=== PATIENT | female | born 1930 | race African-American/Black ===

== ENCOUNTER 2017-02-18 12:58 | Emergency (ER) | payer BC ==
[~2017-02-18 12:58] MED LIST: *UNABLE1; ACET500CAP PO; ADALAT CC90 MG PO; AMB10 PO; APRES10B PO; ASAB PO; BLOOD PRESSURE MED 1 PO; BLOOD PRESSURE MED 2 PO; BLOOD PRESSURE MED PO; BLOOD PRESSURE RX #1 PO; BLOOD PRESSURE RX #2 PO; CARDU4 PO; COMBIVENT INH; DSS PO; FERGON OR; FERREX 150150 MG PO; FERROUS SULF325 M1 PO; GAS RELIEF PO; GLUCXL5 PO; HALF81 PO; IMDUR30 PO; IMDUR60 PO; KDUR20 PO; KLOR-CON M2020 MEQ PO; L20 PO; LISINOPRIL40 MG PO; MAGNESIUM CITRATE PO; MIRALAXPKT PO; MOMUD PO; NAP250 PO; NEBULIZER SOLN RX INH; NIFEDIAC CC90 MG PO; NORV5 PO; NUIRONCAP PO; OTC PAIN MED PO; OTC SLEEP AID PO; P10 PO; POTASSIUM 20 MEQ PO; POTASSIUM PO; PRILO PO; PRIN10 PO; PROAIR HFA INH; PROTONIX PO; PULMICORT180 MCG INH; SINGULAIR1 PO; STERAPDS12; STERAPRED DS10 MG; STOOL SOFTEN240 MG PO; SUCR PO; SYMBICORT 160/41 INH INH; T PO; TUMSROLL PO; VENTOLIN HFA INH; VIB100 PO; VIBRATAB100 MG PO; VITAMIN D1000 UNI1 PO; VITAMIN D31000 UNIT PO; VITAMIN D400 UNI1 PO; ZANTAC 150 PO; ZESTRIL40 MG PO; [UNRECOGNIZED DRUG - REMARK] PO; [UNRECOGNIZED DRUG - REMARK] PO; [UNRECOGNIZED DRUG - REMARK] PO
[2017-02-18 14:01] LABS: BASOPHILS 0.6 %; BASOPHILS ABSOLUTE 0.05 10/3/uL (0.0-0.16); EOSINOPHILS ABSOLUTE 0.43 10/3/uL (0.0-0.53); HEMOGLOBIN 12.7 g/dL (12.0-16.0); IMMATURE GRANULOCYTES 0.3 %; IMMATURE GRANULOCYTES ABSOLUTE 0.03 10/3/uL (0.0-0.11); LYMPHOCYTES 26.6 %; MEAN CORPUS HGB CONC 34.3 g/dL (32.0-36.0); MEAN CORPUSCULAR HEMOGLOB 29.3 pg (26.0-34.0); MONOCYTES 4.7 %; MONOCYTES ABSOLUTE 0.41 10/3/uL (0.21-1.20); NEUTROPHILS 62.8 %; NEUTROPHILS ABSOLUTE 5.44 10/3/uL (2.02-8.40); PLATELET COUNT 263 10/3/uL (150-400); RBC DISTRIBUTION WIDTH 13.9 % (12.0-16.0); RED CELL COUNT 4.34 10/6/uL (4.0-5.6); WHITE BLOOD CELLS 8.7 10/3/uL (4.5-10.5)
[2017-02-18 14:03] LABS: MANUAL DIFF NO %; MEAN CORPUSCULAR VOLUME 85.3 fL (80-100)
[2017-02-18 14:09] LABS: PROTIME (NOT ORD) 13.5 SEC (12.0-14.5)
[2017-02-18 14:10] LABS: PARTIAL THROMBO TIME 32.5 SEC (22.5-37.2)
[2017-02-18 14:16] LABS: BUN (BLOOD UREA NITROGEN) 14 MG/DL (6-23); CALCIUM, SERUM 9.5 MG/DL (8.5-10.4); CHEST PAIN PROFILE TAT 0 Hrs 19 Mins; CHLORIDE, SERUM 104 MMOL/L (96-112); CO2 (CARBON DIOXIDE) 27 MMOL/L (24-34); CREATININE 1.01 MG/DL (0.55-1.02); GFR AFRICAN AMERICAN 59 ML/MIN (>=60); GFR NON AFRICAN AMERICAN 51 ML/MIN (>=60); GLUCOSE, SERUM 133 MG/DL (60-99); POTASSIUM, SERUM 3.4 MMOL/L (3.5-5.3); SODIUM, SERUM 142 MMOL/L (135-148); TROPONIN I <0.02 NG/ML (<0.05)
[2017-02-18 14:39] LABS: BE (BASE EXCESS) 3.4 MEQ/L (0 +/- 2.5); HCO3 (ACTUAL BICARBONATE) 27.9 MEQ/L (23-27); INSTRUMENT SERIAL # 8087; PCO2 (CO2 TENSION) 42 MMHG (35-45); PO2 (O2 TENSION) 63 MMHG (79-93); pH 7.44 (7.37-7.43)
[2017-02-18 14:40] LABS: ALLENS TEST Pos; CARBOXYHEMOGLOBIN 1.3 % (0-3); METHEMOGLOBIN 0.3 % (0-3); O2 CONTENT 16.7 VOL% (18-24); SAMPLE Arterial
[2017-06-30] MEDS ORDERED: DORYX100 MG PO (13:37)
[2017-06-30] MEDS ORDERED: STERAP512 (13:37)
[2017-06-30] MEDS ORDERED: APRES25 PO (13:38)
[2017-06-30] MEDS ORDERED: HCTZ12.5 PO (13:38)
== END 2017-02-18 16:30 | disposition home or self-care (01) ==
LOC: ER 12:58
PROVIDERS: Emergency Medicine
DX: J45.901 Unspecified asthma with (acute) exacerbation (principal); J44.1 Chronic obstructive pulmonary disease with (acute) exacerbation; I10 Essential (primary) hypertension; D64.9 Anemia, unspecified; Z87.01 Personal history of pneumonia (recurrent); Z88.0 Allergy status to penicillin; Z88.6 Allergy status to analgesic agent; Z79.899 Other long term (current) drug therapy
CPT/HCPCS: 36600; 71010; 80048; 82805; 83735; 83880; 84484; 85025; 85610; 85730; 93005; 94640; 96374; 96375; 99291; A9270-GY; J1940; J2930

== ENCOUNTER 2017-03-18 18:26 | Emergency (ER) | payer BC ==
[2017-03-18 17:38] LABS: BASOPHILS 0.6 %; BASOPHILS ABSOLUTE 0.04 10/3/uL (0.0-0.16); ER CBC TAT 0 Hrs 03 Mins; HEMATOCRIT 33.9 % (36.0-48.0); HEMOGLOBIN 11.7 g/dL (12.0-16.0); IMMATURE GRANULOCYTES 0.3 %; IMMATURE GRANULOCYTES ABSOLUTE 0.02 10/3/uL (0.0-0.11); LYMPHOCYTES 26.8 %; LYMPHOCYTES ABSOLUTE 1.78 10/3/uL (0.67-4.30); MEAN CORPUS HGB CONC 34.5 g/dL (32.0-36.0); MEAN CORPUSCULAR HEMOGLOB 29.4 pg (26.0-34.0); MEAN CORPUSCULAR VOLUME 85.2 fL (80-100); MEAN PLATELET VOLUME 9.2 fL (9.2-13.0); NEUTROPHILS 57.3 %; NEUTROPHILS ABSOLUTE 3.79 10/3/uL (2.02-8.40); PLATELET COUNT 234 10/3/uL (150-400); RBC DISTRIBUTION WIDTH 13.9 % (12.0-16.0); RED CELL COUNT 3.98 10/6/uL (4.0-5.6); WHITE BLOOD CELLS 6.6 10/3/uL (4.5-10.5)
[2017-03-18 17:40] LABS: MANUAL DIFF NO %
[2017-03-18 17:54] LABS: A/G RATIO 0.8 (0.7-1.9); ALBUMIN 3.6 G/DL (3.5-5.0); ALKALINE PHOSPHATASE 92 U/L (45-117); BUN (BLOOD UREA NITROGEN) 9 MG/DL (6-23); CALCIUM, SERUM 8.8 MG/DL (8.5-10.4); CHLORIDE, SERUM 104 MMOL/L (96-112); CO2 (CARBON DIOXIDE) 29 MMOL/L (24-34); CREATININE 1.07 MG/DL (0.55-1.02); GFR AFRICAN AMERICAN 55 ML/MIN (>=60); GFR NON AFRICAN AMERICAN 48 ML/MIN (>=60); GLOBULIN 4.5 G/DL (2.5-4.1); GLUCOSE, SERUM 103 MG/DL (60-99); POTASSIUM, SERUM 3.6 MMOL/L (3.5-5.3); SGOT(AST) 26 U/L (5-40); SGPT(ALT) 38 U/L (5-65); SODIUM, SERUM 142 MMOL/L (135-148); TOTAL BILIRUBIN 0.4 MG/DL (0-1.2); TOTAL PROTEIN 8.1 G/DL (6.0-8.5)
[2017-03-18] MEDS ORDERED: ACET500CAP PO (19:28)
[2017-03-18] MEDS ORDERED: DOXAZOSIN PO (19:29)
[2017-03-18] MEDS ORDERED: FERROUS SULFATE PO (19:30)
[2017-03-18] MEDS ORDERED: LISINOPRIL PO (19:30)
[2017-03-18] MEDS ORDERED: PROTONIX PO (19:31)
[2017-03-18] MEDS ORDERED: NIFEDIPINE PO (19:31)
[2017-03-18] MEDS ORDERED: MIRALAX POWDER PO (19:31)
[2017-03-18] MEDS ORDERED: *UNABLE1 (19:32)
[2017-06-30] MEDS ORDERED: DORYX100 MG PO (13:37)
[2017-06-30] MEDS ORDERED: STERAP512 (13:37)
[2017-06-30] MEDS ORDERED: APRES25 PO (13:38)
[2017-06-30] MEDS ORDERED: HCTZ12.5 PO (13:38)
== END 2017-03-18 20:55 | disposition home or self-care (01) ==
LOC: ER 18:26
PROVIDERS: Hospitalist
DX: J45.901 Unspecified asthma with (acute) exacerbation (principal); I10 Essential (primary) hypertension; J44.9 Chronic obstructive pulmonary disease, unspecified; Z87.891 Personal history of nicotine dependence; Z88.0 Allergy status to penicillin; Z88.6 Allergy status to analgesic agent; Z79.899 Other long term (current) drug therapy
CPT/HCPCS: 71010; 80053; 85025; 93005; 94640; 94644; 96374; 99284; A9270-GY; J2930

== ENCOUNTER → 2017-04-03 | Emergency (ER) | payer BC ==
[~2017-04-03] MED LIST changes: +ADVIL PO; +ALBUTEROL0.083 % INH; +APRES25 PO; +DORYX100 MG PO; +DOXAZOSIN PO; +FERROUS SULFATE PO; +HCTZ12.5 PO; +LISINOPRIL PO; +MIRALAX POWDER PO; +NIFEDIPINE PO; +STERAP512
[2017-04-03 09:45] LABS: BASOPHILS 0.4 %; BASOPHILS ABSOLUTE 0.03 10/3/uL (0.0-0.16); EOSINOPHILS 5.7 %; EOSINOPHILS ABSOLUTE 0.45 10/3/uL (0.0-0.53); ER CBC TAT 0 Hrs 03 Mins; HEMATOCRIT 33.3 % (36.0-48.0); HEMOGLOBIN 11.3 g/dL (12.0-16.0); IMMATURE GRANULOCYTES 0.3 %; IMMATURE GRANULOCYTES ABSOLUTE 0.02 10/3/uL (0.0-0.11); LYMPHOCYTES 20.9 %; LYMPHOCYTES ABSOLUTE 1.66 10/3/uL (0.67-4.30); MANUAL DIFF NO %; MEAN CORPUS HGB CONC 33.9 g/dL (32.0-36.0); MEAN CORPUSCULAR HEMOGLOB 28.8 pg (26.0-34.0); MEAN CORPUSCULAR VOLUME 84.7 fL (80-100); MEAN PLATELET VOLUME 9.6 fL (9.2-13.0); MONOCYTES 7.2 %; MONOCYTES ABSOLUTE 0.57 10/3/uL (0.21-1.20); NEUTROPHILS 65.5 %; PLATELET COUNT 235 10/3/uL (150-400); RBC DISTRIBUTION WIDTH 13.8 % (12.0-16.0); RED CELL COUNT 3.93 10/6/uL (4.0-5.6); WHITE BLOOD CELLS 7.9 10/3/uL (4.5-10.5)
[2017-04-03 09:55] LABS: PARTIAL THROMBO TIME 32.1 SEC (22.5-37.2)
[2017-04-03 10:03] LABS: BUN (BLOOD UREA NITROGEN) 9 MG/DL (6-23); CALCIUM, SERUM 8.6 MG/DL (8.5-10.4); CHEST PAIN PROFILE TAT 0 Hrs 21 Mins; CHLORIDE, SERUM 106 MMOL/L (96-112); CO2 (CARBON DIOXIDE) 27 MMOL/L (24-34); CREATININE 1.09 MG/DL (0.55-1.02); GFR AFRICAN AMERICAN 54 ML/MIN (>=60); GFR NON AFRICAN AMERICAN 47 ML/MIN (>=60); POTASSIUM, SERUM 3.1 MMOL/L (3.5-5.3); SODIUM, SERUM 143 MMOL/L (135-148); TROPONIN I 0.04 NG/ML (<0.05)
[2017-04-03 10:05] LABS: GLUCOSE, SERUM 157 MG/DL (60-99)
[2017-04-03 10:18] LABS: ALLENS TEST Pos; BE (BASE EXCESS) 1.5 MEQ/L (0 +/- 2.5); CARBOXYHEMOGLOBIN 0.8 % (0-3); DEVICE NC; HCO3 (ACTUAL BICARBONATE) 26.1 MEQ/L (23-27); HEMOBLOGIN CONTENT 12.4 G/DL (12-16); INSTRUMENT SERIAL # 8087; METHEMOGLOBIN 0.3 % (0-3); O2 CONTENT 16.9 VOL% (18-24); OPERATOR ID 14335; PCO2 (CO2 TENSION) 41 MMHG (35-45); PO2 (O2 TENSION) 98 MMHG (79-93); SAMPLE Arterial; pH 7.42 (7.37-7.43)
== END | disposition home or self-care (01) ==
LOC: ER 09:53
PROVIDERS: Emergency Medicine
DX: J44.1 Chronic obstructive pulmonary disease with (acute) exacerbation (principal); R06.02 Shortness of breath; I10 Essential (primary) hypertension; E87.6 Hypokalemia; Z88.0 Allergy status to penicillin; Z91.09 Other allergy status, other than to drugs and biological substances; E78.5 Hyperlipidemia, unspecified
CPT/HCPCS: 36600; 71010; 80048; 82805; 83735; 84484; 85025; 85610; 85730; 93005; 94640; 99285; A9270-GY

== ENCOUNTER 2017-04-18 15:06 | Emergency (ER) | payer BC ==
[~2017-04-18 15:06] MED LIST changes: -ADVIL PO; -ALBUTEROL0.083 % INH; -APRES25 PO; -DORYX100 MG PO; -HCTZ12.5 PO; -STERAP512
[2017-04-18 16:37] LABS: BASOPHILS 0.4 %; BASOPHILS ABSOLUTE 0.03 10/3/uL (0.0-0.16); EOSINOPHILS 4.3 %; EOSINOPHILS ABSOLUTE 0.33 10/3/uL (0.0-0.53); ER CBC TAT 0 Hrs 12 Mins; HEMATOCRIT 34.6 % (36.0-48.0); HEMOGLOBIN 11.5 g/dL (12.0-16.0); IMMATURE GRANULOCYTES 0.3 %; IMMATURE GRANULOCYTES ABSOLUTE 0.02 10/3/uL (0.0-0.11); LYMPHOCYTES 16.5 %; LYMPHOCYTES ABSOLUTE 1.27 10/3/uL (0.67-4.30); MEAN CORPUS HGB CONC 33.2 g/dL (32.0-36.0); MEAN CORPUSCULAR HEMOGLOB 28.8 pg (26.0-34.0); MEAN CORPUSCULAR VOLUME 86.7 fL (80-100); MEAN PLATELET VOLUME 9.5 fL (9.2-13.0); MONOCYTES 7.1 %; MONOCYTES ABSOLUTE 0.55 10/3/uL (0.21-1.20); NEUTROPHILS 71.4 %; NEUTROPHILS ABSOLUTE 5.52 10/3/uL (2.02-8.40); PLATELET COUNT 251 10/3/uL (150-400); RBC DISTRIBUTION WIDTH 14.3 % (12.0-16.0); RED CELL COUNT 3.99 10/6/uL (4.0-5.6); WHITE BLOOD CELLS 7.7 10/3/uL (4.5-10.5)
[2017-04-18 16:40] LABS: MANUAL DIFF NO %
[2017-04-18 16:50] LABS: INTERNATIONAL NORMAL RATI 1.1 UNITS (-); PARTIAL THROMBO TIME 32.2 SEC (22.5-37.2)
[2017-04-18 16:51] LABS: CALCIUM, SERUM 9.5 MG/DL (8.5-10.4); CHEST PAIN PROFILE TAT 0 Hrs 26 Mins; CHLORIDE, SERUM 114 MMOL/L (96-112); CO2 (CARBON DIOXIDE) 27 MMOL/L (24-34); CREATININE 1.22 MG/DL (0.55-1.02); GFR AFRICAN AMERICAN 47 ML/MIN (>=60); GFR NON AFRICAN AMERICAN 41 ML/MIN (>=60); GLUCOSE, SERUM 146 MG/DL (60-99); SODIUM, SERUM 146 MMOL/L (135-148); TROPONIN I <0.02 NG/ML (<0.05)
[2017-04-18] MEDS ORDERED: LISINOPRIL40 MG PO (16:55)
[2017-04-18] MEDS ORDERED: ADALAT CC90 MG PO (16:55)
[2017-04-18] MEDS ORDERED: KDUR20 PO (16:55)
[2017-04-18] MEDS ORDERED: PRILO PO (16:55)
[2017-04-18 16:56] LABS: BUN (BLOOD UREA NITROGEN) 14 MG/DL (6-23); POTASSIUM, SERUM 3.9 MMOL/L (3.5-5.3)
[2017-04-18] MEDS ORDERED: T PO (16:56)
[2017-04-18] MEDS ORDERED: L20 PO (16:56)
[2017-04-18] MEDS ORDERED: ALBUTEROL0.083 % INH (16:56)
[2017-04-18] MEDS ORDERED: ADVIL PO (16:57)
[2017-06-30] MEDS ORDERED: DORYX100 MG PO (13:37)
[2017-06-30] MEDS ORDERED: STERAP512 (13:37)
[2017-06-30] MEDS ORDERED: HCTZ12.5 PO (13:38)
[2017-06-30] MEDS ORDERED: APRES25 PO (13:38)
== END 2017-04-18 19:06 | disposition home or self-care (01) ==
LOC: ER 15:06
PROVIDERS: Emergency Medicine
DX: J45.901 Unspecified asthma with (acute) exacerbation (principal); J20.9 Acute bronchitis, unspecified; I10 Essential (primary) hypertension; Z88.0 Allergy status to penicillin; Z88.6 Allergy status to analgesic agent; Z79.899 Other long term (current) drug therapy
CPT/HCPCS: 71020; 80048; 83735; 84484; 85025; 85610; 85730; 93005; 94640; 96374; 99285; J2920

== ENCOUNTER 2017-05-13 23:53 | Emergency (ER) | payer BC ==
[2017-05-13 20:12] LABS: BASOPHILS 0.4 %; BASOPHILS ABSOLUTE 0.03 10/3/uL (0.0-0.16); EOSINOPHILS 7.4 %; EOSINOPHILS ABSOLUTE 0.53 10/3/uL (0.0-0.53); HEMATOCRIT 33.5 % (36.0-48.0); HEMOGLOBIN 11.3 g/dL (12.0-16.0); IMMATURE GRANULOCYTES 0.1 %; IMMATURE GRANULOCYTES ABSOLUTE 0.01 10/3/uL (0.0-0.11); LYMPHOCYTES 18.1 %; LYMPHOCYTES ABSOLUTE 1.29 10/3/uL (0.67-4.30); MEAN CORPUS HGB CONC 33.7 g/dL (32.0-36.0); MEAN CORPUSCULAR HEMOGLOB 28.5 pg (26.0-34.0); MEAN CORPUSCULAR VOLUME 84.6 fL (80-100); MEAN PLATELET VOLUME 9.6 fL (9.2-13.0); MONOCYTES 3.8 %; MONOCYTES ABSOLUTE 0.27 10/3/uL (0.21-1.20); NEUTROPHILS 70.2 %; NEUTROPHILS ABSOLUTE 4.99 10/3/uL (2.02-8.40); PLATELET COUNT 226 10/3/uL (150-400); RBC DISTRIBUTION WIDTH 13.8 % (12.0-16.0); RED CELL COUNT 3.96 10/6/uL (4.0-5.6); WHITE BLOOD CELLS 7.1 10/3/uL (4.5-10.5)
[2017-05-13 20:14] LABS: MANUAL DIFF NO %
[2017-05-13 20:27] LABS: A/G RATIO 0.9 (0.7-1.9); ALBUMIN 3.7 G/DL (3.5-5.0); CALCIUM, SERUM 8.9 MG/DL (8.5-10.4); CHLORIDE, SERUM 107 MMOL/L (96-112); CO2 (CARBON DIOXIDE) 29 MMOL/L (24-34); CREATININE 0.98 MG/DL (0.55-1.02); GFR AFRICAN AMERICAN 61 ML/MIN (>=60); GFR NON AFRICAN AMERICAN 53 ML/MIN (>=60); GLOBULIN 3.9 G/DL (2.5-4.1); GLUCOSE, SERUM 135 MG/DL (60-99); POTASSIUM, SERUM 3.4 MMOL/L (3.5-5.3); SGOT(AST) 32 U/L (5-40); SGPT(ALT) 37 U/L (5-65); SODIUM, SERUM 142 MMOL/L (135-148); TOTAL BILIRUBIN 0.4 MG/DL (0-1.2); TOTAL PROTEIN 7.6 G/DL (6.0-8.5)
[2017-05-13 20:29] LABS: ALKALINE PHOSPHATASE 72 U/L (45-117); BUN (BLOOD UREA NITROGEN) 9 MG/DL (6-23)
[~2017-05-13 23:53] MED LIST changes: +ADVIL PO; +ALBUTEROL0.083 % INH
[2017-06-30] MEDS ORDERED: STERAP512 (13:37)
[2017-06-30] MEDS ORDERED: DORYX100 MG PO (13:37)
[2017-06-30] MEDS ORDERED: HCTZ12.5 PO (13:38)
[2017-06-30] MEDS ORDERED: APRES25 PO (13:38)
== END 2017-05-13 23:59 | disposition home or self-care (01) ==
LOC: ER 23:53
PROVIDERS: Hospitalist
DX: J45.901 Unspecified asthma with (acute) exacerbation (principal); D64.9 Anemia, unspecified; Z88.0 Allergy status to penicillin; Z88.6 Allergy status to analgesic agent; Z79.899 Other long term (current) drug therapy
CPT/HCPCS: 71010; 80053; 85025; 93005; 94640; 99285; A9270-GY

== ENCOUNTER 2017-05-14 05:16 | Observation (INO) | payer BC ==
--- NOTE | ~2017-05-14 | HP ---
History And Physical [facility] [address] [place]. [address] NAME: ANDERSON BORGES : 34 STATUS : REG ER PAT#: [id number] AGE: 86 ADM/REG DATE : 05/14/17 MR#: [id number] REPORT SERV DATE: 05/14/17 DICTATED BY: RAOUL JIMENES DATE: 05/14/17 REPORT STATUS : Draft TRANSCRIBED BY: MODL DATE: 05/14/17 DATE OF ADMISSION: 05/14/2017 CHIEF COMPLAINT: Shortness of breath. 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 History is obtained from the patient and her who is at bedside and review of data available on the My[employer] system as well. According to the patient's , sister, and herself, she had presented herself in the emergency room here several times in the last few days, had been optimized and discharged home after she was found to have an exacerbation of her COPD. However, yesterday, when she was discharged and went home, she continued to be very short of breath to the point her family finally decided to bring her back again to be re-evaluated. In the emergency room, she had a bump in her troponins, had hyperglycemia along with the exacerbation of her COPD, and the Hospitalist Service was asked to admit her for further evaluation and treatment. At the time of my evaluation, she denied any chest pain or pressure. She denied any palpitations or orthopnea. She had a cough which was productive of whitish sputum. Denied any hemoptysis, night sweats, or weight loss. She has not had any falls or loss of consciousness recently. Denied any fevers, chills, nausea, vomiting, or diarrhea. No other history of recent travel or exposures other than those mentioned above. PAST MEDICAL HISTORY: Significant for history of COPD with frequent exacerbations, history of hypertension, hypercholesterolemia, and a history of depression as well. 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 SOCIAL HISTORY: She does not smoke, drink, or use recreational drugs. FAMILY HISTORY: Noncontributory. MEDICATIONS: Her medications at home are reviewed by me in the chart today and reordered by me. REVIEW OF SYSTEMS: As in history of present illness. All other systems are reviewed in detail and quite unremarkable. PHYSICAL EXAMINATION: GENERAL: This is a pleasant 86-year-old who is in mild respiratory distress. She is alert, awake, and oriented to time, place, and person. History And Physical [address] [place]. [address] NAME: ANDERSON BORGES : 32 STATUS : REG ER PAT#: [id number] AGE: 86 ADM/REG DATE : 05/14/17 MR#: [id number] REPORT SERV DATE: 05/14/17 DICTATED BY: RAOUL JIMENES DATE: 05/14/17 REPORT STATUS : Draft TRANSCRIBED BY: LAMAR DATE: 05/14/17 HEENT: The pupils are equal, reacting to light, and accommodating. External ocular muscles are intact. Membranes are moist and pink. Sclerae are nonicteric. NECK: Supple with no jugular venous distention, lymphadenopathy, or thyromegaly. LUNGS: Auscultation of her lungs reveals diffuse bilateral expiratory wheezes with markedly diminished air entry as well. There are no rales. HEART: Auscultation of her heart reveals normal rate and rhythm with no murmurs, rubs, or gallops appreciated. ABDOMEN: Protuberant, soft, and nontender. Bowel sounds are present. EXTREMITIES: No cyanosis, clubbing, or edema. NEUROLOGIC: Grossly intact. No focal sensory or motor deficits. Higher functions appeared intact. Gait is not examined at this time. VITAL SIGNS: Her vital signs today show temperature 97.3, pulse 101, respirations 23 a minute, blood pressure is 183/96, and oxygen saturations are 100% breathing 3 L of oxygen via nasal cannula. LABORATORY DATA: Laboratory data reviewed on the [employer] system showed sodium 142, potassium 3.6, chloride 106 and CO2 of 27. BUN was 11 with a creatinine of 1.21 which is slightly above her baseline. Blood glucose was 188. Her alkaline phosphatase was 72. ALT and AST were within normal limits today. Troponin was 0.05 today. Her BNP was 124.8 and CBC showed a white blood cell count of 5500, hemoglobin was 12.1, hematocrit was 35.5, and platelet count was 223,000. Her prothrombin time was 13.7 with an INR of 1.1 today. Urinalysis was not done today. Films from the chest x-ray were reviewed by me on the PACS today and interpreted by me. Per my interpretation, there are no acute infiltrates or lobar consolidations seen. There are no pleural effusions as well. A 12-lead EKG done in the emergency room was reviewed and interpreted by me. There is normal sinus rhythm at a rate of [address]-T elevations. There is first degree AV block with incomplete right bundle-branch block. IMPRESSION: 1. Shortness of breath. 2. Acute exacerbation of chronic obstructive pulmonary disease. 3. Elevated troponin. 4. Hyperglycemia. 5. Hypertension. 6. Hypercholesterolemia. 7. Depression. PLAN: We will admit Mrs. Borges to the Hospitalist Service in a telemetry bed for a 24- hour observation period. We will go ahead and maximize her bronchodilator treatments, continue supplemental oxygen therapy, add corticosteroids to her regimen, both inhaled and intravenous. We will establish strict blood sugar control with NovoLog given subcutaneously per sliding scale and check her A1c as well. Her mild elevation in troponin could be from demand ischemia. We will follow serial cardiac markers to rule out any acute coronary syndrome. Meanwhile, we will continue other home medications and treatments here. She will History And Physical [address] [place]. [address] NAME: ANDERSON BORGES : 34 STATUS : REG ER PAT#: [id number] AGE: 86 ADM/REG DATE : 05/14/17 MR#: [id number] REPORT SERV DATE: 05/14/17 DICTATED BY: RAOUL JIMENES DATE: 05/14/17 REPORT STATUS : Draft TRANSCRIBED BY: LAMAR DATE: 05/14/17 be placed on SCDs for DVT prophylaxis given her history of AVMs and GI bleed in the past. I have discussed the above plans with the patient and the family, questions were answered, and they are agreeable to the above recommendations. Hospitalist Service will be following her during her stay here. /LAMAR Raoul Jimenes M.D. / [id number]
--- NOTE | ~2017-05-14 | DS ---
Discharge Summary [facility] [id number] [place]. [address] NAME: ANDERSON VORA : 34 STATUS : DIS Parmjit PAT#: [id number] AGE: 86 ADM/REG DATE : 05/14/17 MR#: [id number] REPORT SERV DATE: 05/29/17 DICTATED BY: ADARSH YOU DATE: 05/28/17 REPORT STATUS : Draft TRANSCRIBED BY: MODL DATE: 05/28/17 ADMISSION DATE: 05/14/2017 DISCHARGE DATE: 05/14/2017 DIAGNOSES AT THE TIME OF DISCHARGE: Acute exacerbation of chronic pulmonary disease, hypoxic respiratory failure, demand ischemia, hyperglycemia, hypertension, hyperlipidemia, and depression. BRIEF HISTORY OF PRESENT ILLNESS: The patient is an 86-year-old female, presented with shortness of breath and COPD exacerbation. For detailed history and physical exam, please see note dictated by Dr. Raoul Husain on 05/14/2017. HOSPITAL COURSE: After being admitted to the hospital, this patient was seen by me in followup, however, and I recommended that she stay in the hospital for further treatment. During the evening hours, this patient left against medical advice. DISPOSITION: Apparently, the patient went home against medical advice. No further medication reconciliations were done nor any prescriptions by me were written. DICTATED BY: Iban Jose/LAMAR Adarsh You M.D. / [id number] CC: Adarsh You M.D.
[2017-05-14 04:29] LABS: BASOPHILS 0.2 %; BASOPHILS ABSOLUTE 0.01 10/3/uL (0.0-0.16); EOSINOPHILS 0 %; HEMATOCRIT 35.5 % (36.0-48.0); HEMOGLOBIN 12.1 g/dL (12.0-16.0); IMMATURE GRANULOCYTES 0.5 %; IMMATURE GRANULOCYTES ABSOLUTE 0.03 10/3/uL (0.0-0.11); LYMPHOCYTES 8.6 %; LYMPHOCYTES ABSOLUTE 0.47 10/3/uL (0.67-4.30); MEAN CORPUS HGB CONC 34.1 g/dL (32.0-36.0); MEAN CORPUSCULAR HEMOGLOB 28.9 pg (26.0-34.0); MEAN CORPUSCULAR VOLUME 84.7 fL (80-100); MEAN PLATELET VOLUME 9.5 fL (9.2-13.0); MONOCYTES 2.4 %; MONOCYTES ABSOLUTE 0.13 10/3/uL (0.21-1.20); NEUTROPHILS 88.3 %; NEUTROPHILS ABSOLUTE 4.85 10/3/uL (2.02-8.40); PLATELET COUNT 223 10/3/uL (150-400); RBC DISTRIBUTION WIDTH 13.7 % (12.0-16.0); RED CELL COUNT 4.19 10/6/uL (4.0-5.6); WHITE BLOOD CELLS 5.5 10/3/uL (4.5-10.5)
[2017-05-14 04:33] LABS: MANUAL DIFF NO %
[2017-05-14 04:40] LABS: INTERNATIONAL NORMAL RATI 1.1 UNITS (-); PARTIAL THROMBO TIME 30.9 SEC (22.5-37.2); PROTIME (NOT ORD) 13.7 SEC (12.0-14.5)
[2017-05-14 04:46] LABS: BUN (BLOOD UREA NITROGEN) 11 MG/DL (6-23); CHLORIDE, SERUM 106 MMOL/L (96-112); CO2 (CARBON DIOXIDE) 27 MMOL/L (24-34); CREATININE 1.21 MG/DL (0.55-1.02); GFR AFRICAN AMERICAN 48 ML/MIN (>=60); GFR NON AFRICAN AMERICAN 41 ML/MIN (>=60); POTASSIUM, SERUM 3.6 MMOL/L (3.5-5.3); SODIUM, SERUM 142 MMOL/L (135-148)
[2017-05-14 04:47] LABS: CHEST PAIN PROFILE TAT 0 Hrs 22 Mins; GLUCOSE, SERUM 188 MG/DL (60-99); TROPONIN I 0.05 NG/ML (<0.05)
[2017-05-14 10:21] LABS: PHOSPHORUS, SERUM 3.6 MG/DL (2.5-4.5)
[2017-05-14 11:06] LABS: TROPONIN I 0.07 NG/ML (<0.05)
[2017-06-30] MEDS ORDERED: STERAP512 (13:37)
[2017-06-30] MEDS ORDERED: DORYX100 MG PO (13:37)
[2017-06-30] MEDS ORDERED: APRES25 PO (13:38)
[2017-06-30] MEDS ORDERED: HCTZ12.5 PO (13:38)
== END 2017-05-14 21:41 | disposition left against medical advice (07) ==
LOC: ER 05:16 → ER/OF 07:57 → 7NO 12:09
PROVIDERS: Internal Medicine Pulmonary Disease; Nurse Practitioner
DX: J44.1 Chronic obstructive pulmonary disease with (acute) exacerbation (principal); I10 Essential (primary) hypertension; E78.00 Pure hypercholesterolemia, unspecified; F32.9 Major depressive disorder, single episode, unspecified; R73.9 Hyperglycemia, unspecified; Z88.0 Allergy status to penicillin; Z88.6 Allergy status to analgesic agent; Z79.891 Long term (current) use of opiate analgesic; Z79.899 Other long term (current) drug therapy; Z90.710 Acquired absence of both cervix and uterus; Z98.41 Cataract extraction status, right eye; Z90.49 Acquired absence of other specified parts of digestive tract
CPT/HCPCS: 71020; 80048; 82962; 83036; 83735; 83880; 84100; 84484; 85025; 85610; 85730; 87040; 87070; 87205; 87449; 93005; 94640; 96375; 96376; 99285; A9270-GY; G0378; J1956; J2920; J2930